=== PATIENT | female | born 1955 | race African-American/Black ===

== ENCOUNTER 2019-03-03 09:49 | Inpatient (IN) | payer BC, OTHER ==
[~2019-03-03] VITALS: Ht 160 cm; Wt 82.1 kg
[2019-03-03 09:49] VITALS: BP 128/71
[~2019-03-03 09:49] MED LIST: CALCIUM 500 +1 EAC4 PO; HYDROCHLOROTHIA25 M2 PO; NAPROSYN500 MG PO; NOHOMEMEDICATIONS; NORCO 5-325 TA1 EACH PO
[2019-03-03] MEDS ORDERED: ASPIR 8181 M1 PO (10:00)
[2019-03-03] MEDS ORDERED: OMEPRAZOLE 20 M20 M1 PO (10:00)
[2019-03-03] MEDS ORDERED: ARTHRITIS PAIN650 MG PO (10:02)
[2019-03-03 10:14] LABS: BASOPHILS 0.8 % (0.0-2.0); EOSINOPHILS 1.7 % (0.0-3.0); HEMATOCRIT 31.5 % (37.0-47.0); HEMOGLOBIN 10.5 gm/dL (12.0-15.0); LYMPHOCYTES 17.5 % (24.0-44.0); MCH 30.4 pg (26.0-34.0); MCHC 33.3 g/dL (28.0-37.0); MCV 91.2 fL (80.0-100.0); MONOCYTES 10.6 % (1.0-8.0); PLATELET COUNT 556 thou/uL (150-400); POLYS 69.4 % (36.0-66.0); RBC 3.46 mil/uL (4.20-5.00); WBC 8.6 thou/uL (4.0-11.0)
[2019-03-03 10:23] LABS: ANION GAP 11 mmol/L (7-16); BUN 14 mg/dL (7-18); CALCIUM 10.8 mg/dL (8.5-10.1); CHLORIDE 95 mmol/L (98-107); CO2 26 mmol/L (21-32); GLUCOSE 127 mg/dL (74-106); POTASSIUM 4.4 mmol/L (3.5-5.1); SODIUM 132 mmol/L (136-145)
[2019-03-03 10:30] LABS: BE(vivo) 2.8 mmol/L (-2 to +3); HCO3 26.2 mmol/L (22.0-26.0); PCO2 36.2 mmHg (35.0-45.0); PO2 98.5 mmHg (80.0-100.0); pH 7.478 (7.360-7.450); sO2 97.9 % (92.0-98.0)
[2019-03-03 10:32] LABS: TROPONIN-I <0.06 ng/mL (<0.06)
--- NOTE | 2019-03-03 11:32 | EKG ---
[address] [address] ELECTROCARDIOGRAM REPORT Name: VALENTINA PATEL Room #: 170-6 ADM IN M.R.#: [id number] Admission: 03/03/19 Attend Phys: Ross Burnett MD Discharge: Date of : 57 Report #: [id number] THIS REPORT FOR: //name// [facility] ED Test Date: 2019-03-03 Test Time: 09:52:40 Pat Name: VALENTINA WERNER Department: Room: 170 Gender: F Carpenter Refrigerator: SIGRID : 1955 Requested By: Forrest Lopez Order Number: [id number] MD: Ralph Oliveira Measurements Intervals [place] Rate: 134 P: 75 W[place]: 139 QRS: 4 QRSD: 85 T: -8 QT: 282 QTc: 421 Interpretive Statements Sinus tachycardia Left atrial enlargement Compared to ECG 04/21/2014 01:49:37 Electronically Signed On 03-03-2019 11:31:32 MEDICINAL CHEMIST by Ralph Oliveira [email or web address] <ELECTRONICALLY SIGNED> By: Ralph Oliveira MD 03/03/19 1131 Ralph Oliveira MD /FRANSISCO
[2019-03-03 11:50] VITALS: BP 121/78
[2019-03-03 12:01] VITALS: BP 142/74
[2019-03-03] MEDS ORDERED: AUGMENTIN400 MG/53 PO (12:06)
[2019-03-03 12:15] VITALS: BP 132/79
[2019-03-03 12:28] LABS: APTT 28.4 Seconds (24.5-32.8); INR 1.2; PROTIME 11.9 Seconds (9.3-11.4)
[2019-03-03 15:48] VITALS: BP 130/70
[2019-03-03 19:54] VITALS: BP 121/74
[2019-03-04 03:51] VITALS: BP 114/67
[2019-03-04 05:29] LABS: HEMATOCRIT 27.9 % (37.0-47.0); HEMOGLOBIN 9.1 gm/dL (12.0-15.0); MCH 30.4 pg (26.0-34.0); MCHC 32.6 g/dL (28.0-37.0); MCV 93.4 fL (80.0-100.0); RBC 2.99 mil/uL (4.20-5.00); RDW 15.1 % (10.5-14.5); WBC 9.4 thou/uL (4.0-11.0)
[2019-03-04 05:41] LABS: CALCIUM 9.7 mg/dL (8.5-10.1); CREATININE 0.9 mg/dL (0.6-1.0); MAGNESIUM 1.9 mg/dL (1.8-2.4); POTASSIUM 3.9 mmol/L (3.5-5.1); TOTAL BILIRUBIN 0.7 mg/dL (<0.1-1.0); TOTAL PROTEIN 8.2 g/dL (6.4-8.2)
[2019-03-04 07:25] VITALS: BP 106/79
[2019-03-04 11:20] VITALS: BP 127/75
--- NOTE | 2019-03-04 15:42 | 2DMMODE ---
[facility] [email or web address] [place] [address] 2 D/M-MODE ECHOCARDIOGRAM Name: VALENTINA PATEL Room #: 362-P ADM IN .R.#: [id number] Admission: 03/03/19 Attend Phys: Ross Burnett Discharge: Date of : 57 Report #: [id number] THIS REPORT FOR: //name// APPROVED REPORT Study performed: 03/04/2019 14:46:43 EXAM: Comprehensive 2D, Doppler, and color-flow Echocardiogram Patient Location: Bedside Room #: 362 Status: routine BSA: 1.93 HR: 98 bpm BP: 127/75 mmHg Other Information Study Quality: Adequate Technically limited study due to inability to position patient due to recent hip surgery, unable to lay flat. Indications Pulmonary Embolism 2D Dimensions RVDd: 30.15 mm IVSd: 11.17 (7-11mm) LVOT Diam: 20.57 (18-24mm) LVDd: 38.87 mm PWd: 9.99 (7-11mm) Ascending Ao: 30.54 (22-36mm) LVDs: 26.20 (25-40mm) Aortic Root: 31.22 mm IVC: 13.00 mm Volumes Left Atrial Volume (Systole) Single Plane 4CH: 26.12 mL Single Plane 2CH: 28.54 mL LA ESV Index: 16.00 mL/m2 Aortic Valve AoV Peak Vitor.: 1.36 m/s AO Peak Gr.: 7.44 mmHg LVOT Max P.05 mmHg LVOT Max V: 0.87 m/s OLGA Vmax: 2.13 cm2 Mitral Valve E/A Ratio: 0.6 MV Decel. Time: 208.99 ms [facility] [address] [place] [address] 2 D/M-MODE ECHOCARDIOGRAM Name: SOLO WERNERVALENTINAEJ TRUJILLO Room #: 362-P [facility] IN [facility].#: [id number] Admission: 03/03/19 Attend Phys: Ross Burnett Discharge: Date of : 57 Report #: [id number] E Max Vitor.: 0.70 m/s MV A Vitor.: 1.13 m/s MV PHT: 60.61 ms IVRT: 119.95 ms Pulmonary Valve PV Peak Vitor.: 0.88 m/s PV Peak Gr.: 3.07 mmHg Pulmonary Vein P Vein S: 0.37 m/s P Vein A: 0.33 m/s P Vein D: 0.46 m/s P Vein A Dur.: 121.1 msec P Vein S/D Ratio: 0.80 Tricuspid Valve RAP Estimate: 10.00 mmHg Left Ventricle The left ventricle is normal size. There is normal left ventricular wall thickness. The left ventricular systolic function is normal. The left ventricular ejection fraction is within the normal range. LVEF is 60-65%. Mild diastolic dysfunction is present (impaired relaxation pattern). Right Ventricle The right ventricle is normal size. The right ventricular systolic function is normal. Atria The left atrium size is normal. The right atrium size is normal. Aortic Valve The aortic valve is normal in structure. No aortic regurgitation is present. There is no aortic valvular stenosis. Mitral Valve The mitral valve is normal in structure. There is no mitral valve regurgitation noted. No evidence of mitral valve stenosis. Tricuspid Valve The tricuspid valve is normal in structure. There is no tricuspid valve regurgitation noted. Unable to assess PA pressure. Pulmonic Valve The pulmonary valve is normal in structure. Trace pulmonic regurgitation. [facility] [address] [address] 2 D/M-MODE ECHOCARDIOGRAM Name: VALENTINA PATEL Room #: 362-[facility] IN ..#: [id number] Admission: 03/03/19 Attend Phys: Ross Burnett Discharge: Date of : 57 Report #: [id number] Great Vessels The aortic root is normal in size. IVC is normal in size and collapses <50% with inspiration. Pericardium There is no pericardial effusion. <Conclusion> The left ventricle is normal size. There is normal left ventricular wall thickness. The left ventricular systolic function is normal. Mild diastolic dysfunction is present (impaired relaxation pattern). The right ventricle is normal size. The left atrium size is normal. The aortic valve is normal in structure. There is no mitral valve regurgitation noted. There is no tricuspid valve regurgitation noted. <ELECTRONICALLY SIGNED> By: Nam Berry MD 03/04/19 1541 [id number] Nam Berry MD /INF
[2019-03-04 18:25] VITALS: BP 122/84
[2019-03-04 19:22] VITALS: BP 128/72
[2019-03-05 03:53] VITALS: BP 127/55
[2019-03-05 05:08] LABS: HEMATOCRIT 27.8 % (37.0-47.0); HEMOGLOBIN 9.1 gm/dL (12.0-15.0); MCH 30.4 pg (26.0-34.0); MCHC 32.8 g/dL (28.0-37.0); MCV 92.7 fL (80.0-100.0); RBC 2.99 mil/uL (4.20-5.00); RDW 15.5 % (10.5-14.5); WBC 7.7 thou/uL (4.0-11.0)
[2019-03-05 05:11] LABS: CALCIUM 9.3 mg/dL (8.5-10.1); CREATININE 0.9 mg/dL (0.6-1.0); POTASSIUM 3.9 mmol/L (3.5-5.1)
[2019-03-05 07:40] VITALS: BP 128/66
[2019-03-05 11:15] VITALS: BP 117/64
[2019-03-05 15:30] VITALS: BP 98/60
[2019-03-05 19:34] VITALS: BP 124/64
[2019-03-06 04:45] VITALS: BP 131/66
[2019-03-06 05:42] LABS: MCH 30.2 pg (26.0-34.0); MCHC 33.2 g/dL (28.0-37.0); MCV 91.1 fL (80.0-100.0); RBC 2.97 mil/uL (4.20-5.00); RDW 15.6 % (10.5-14.5); WBC 7.5 thou/uL (4.0-11.0)
[2019-03-06 07:19] VITALS: BP 117/61
[2019-03-06 11:20] VITALS: BP 115/60
[2019-03-06 15:34] VITALS: BP 119/56
[2019-03-06 20:02] VITALS: BP 116/61
[2019-03-07 04:58] VITALS: BP 111/60
[2019-03-07 07:39] VITALS: BP 112/76
[2019-03-07 11:21] VITALS: BP 118/69
[2019-03-07 15:19] VITALS: BP 119/73
[2019-03-07 20:28] VITALS: BP 115/59
[2019-03-08 04:26] VITALS: BP 117/59
[2019-03-08 07:50] VITALS: BP 105/69
[2019-03-08 11:54] VITALS: BP 109/64
[2019-03-08 17:20] VITALS: BP 123/68
[2019-03-08 20:10] VITALS: BP 119/65
[2019-03-09 00:05] VITALS: BP 110/67
[2019-03-09 03:20] VITALS: BP 122/62
[2019-03-09 15:30] VITALS: BP 113/71
[2019-03-09 19:25] VITALS: BP 127/75
[2019-03-10 04:20] VITALS: BP 117/65
[2019-03-10 08:07] VITALS: BP 112/65
[2019-03-10 17:29] VITALS: BP 128/79
[2019-03-10 19:50] VITALS: BP 112/68
[2019-03-11 03:20] VITALS: BP 110/69
[2019-03-11 07:47] VITALS: BP 131/74
[2019-03-11 15:55] VITALS: BP 114/64
[2019-03-11 19:42] VITALS: BP 122/75
[2019-03-12 04:30] VITALS: BP 116/71
[2019-03-12 08:25] VITALS: BP 112/64
[2019-03-12] MEDS ORDERED: ELIQUIS5 MG PO (10:29)
[2019-03-12] MEDS ORDERED: AUGMENTIN 875-1 EACH PO (10:29)
[2019-03-12 12:14] VITALS: BP 112/64
[2019-03-12 15:40] VITALS: BP 112/64
== END 2019-03-12 17:00 | disposition home health service (06) | DRG 175 ==
LOC: ER 09:49 → 3W 10:48 → EROBS 10:48 → 3W 12:01 → 4S 03-08 23:37 → ENTRNSPT 03-12 16:37 → 4S 03-12 17:00
PROVIDERS: Emergency Medicine; Hospitalist; ADMIT Internal Medicine
DX: I26.99 Other pulmonary embolism without acute cor pulmonale (principal); J96.01 Acute respiratory failure with hypoxia; J18.9 Pneumonia, unspecified organism; J98.59 Other diseases of mediastinum, not elsewhere classified; J91.8 Pleural effusion in other conditions classified elsewhere; I82.431 Acute embolism and thrombosis of right popliteal vein; M19.90 Unspecified osteoarthritis, unspecified site; K21.9 Gastro-esophageal reflux disease without esophagitis; Z96.641 Presence of right artificial hip joint; Z87.891 Personal history of nicotine dependence; Z79.899 Other long term (current) drug therapy
CPT/HCPCS: 10102; 10779; 10879

== ENCOUNTER 2019-10-14 12:05 | Inpatient (IN) | payer BC, OTHER ==
[~2019-10-14] VITALS: Ht 160 cm; Wt 83.9 kg
--- NOTE | ~2019-10-14 | EKG ---
[facility] [place] [address] ELECTROCARDIOGRAM REPORT Name: VALENTINA PATEL Room #: 200-I ADM IN M.R.#: [id number] Admission: 10/14/19 Attend Phys: Alma Delia Espinoza Discharge: Date of : 57 Report #: [id number] THIS REPORT FOR: cc: FAM - Family physician unknown FAM - Family physician unknown Bhargav Durant MD ~ THIS REPORT FOR: //name// [facility] ED Test Date: 2019-10-14 Test Time: 14:34:29 Pat Name: VALENTINA WERNER Department: Room: 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
[~2019-10-14 12:05] MED LIST changes: +ARTHRITIS PAIN650 MG PO; +ASPIR 8181 M1 PO; +AUGMENTIN 875-1 EACH PO; +AUGMENTIN400 MG/53 PO; +ELIQUIS5 MG PO; +OMEPRAZOLE 20 M20 M1 PO
[2019-10-14 12:30] VITALS: BP 134/74
--- NOTE | 2019-10-14 13:36 | EKG ---
[facility] [place] [address] ELECTROCARDIOGRAM REPORT Name: VALENTINA PATEL [facility] [id number] Admission: 10/14/19 Attend Phys: Discharge: Date of : 57 Report #: [id number] THIS REPORT FOR: cc: FAM - Family physician unknown FAM - Family physician unknown Ralph Oliveira MD ~ THIS REPORT FOR: //name// [facility] ED Test Date: 2019-10-14 Test Time: 12:59:58 Pat Name: VALENTINA WERNER Department: Room: Gender: F Collections Representative: no : 1955 Requested By: Laz Jensen Order Number: [id number] : Ralph Oliveira Measurements Intervals [place] Rate: 69 P: 58 [place]: 181 QRS: 5 QRSD: 93 T: 92 QT: 385 QTc: 413 Interpretive Statements Sinus rhythm Probable left atrial enlargement Abnormal R-wave progression, early transition Probable left ventricular hypertrophy Inferior infarct, old Lateral leads are also involved Compared to ECG 03/03/2019 09:52:40 Myocardial infarct finding now present Sinus tachycardia no longer present Electronically Signed On 10-14-2019 13:35:58 CDT by Ralph Oliveira [email or web address] <ELECTRONICALLY SIGNED> By: Ralph Oliveira MD 10/14/19 1335 1259 1259 Ralph Oliveira MD /EPI
[2019-10-14 13:49] LABS: ABSOLUTE NEUTROPHILS 4.5 thou/uL (1.4-8.2); BASOPHILS 0.5 % (0.0-2.0); EOSINOPHILS 0.7 % (0.0-3.0); HEMATOCRIT 35.6 % (37.0-47.0); HEMOGLOBIN 12.1 gm/dL (12.0-15.0); LYMPHOCYTES 16.5 % (24.0-44.0); MCH 32.3 pg (26.0-34.0); MCV 94.9 fL (80.0-100.0); MONOCYTES 4.3 % (1.0-8.0); PLATELET COUNT 399 thou/uL (150-400); RBC 3.75 mil/uL (4.20-5.00); RDW 17.2 % (10.5-14.5); WBC 5.7 thou/uL (4.0-11.0)
[2019-10-14 13:52] LABS: CALCIUM 9.3 mg/dL (8.5-10.1); POTASSIUM 4.3 mmol/L (3.5-5.1)
[2019-10-14 14:02] LABS: TROPONIN-I 1.82 ng/mL (<0.06)
[2019-10-14 16:31] LABS: TROPONIN-I 4.46 ng/mL (<0.06)
[2019-10-14 17:07] LABS: CHOLESTEROL 147 mg/dL (<200); HDL CHOLESTEROL 51 mg/dL (>40); LDL CHOLESTEROL 85 mg/dL (<100); TC:HDL 2.9 Ratio (Not establshd); TRIGLYCERIDE 56 mg/dL (<150); VLDL 11 mg/dL (<40)
[2019-10-14 17:26] VITALS: BP 93/58
[2019-10-14 17:29] LABS: TSH 0.153 uIU/mL (0.358-3.740)
[2019-10-14 18:11] VITALS: BP 112/63
[2019-10-14 19:33] VITALS: BP 118/66
--- NOTE | 2019-10-14 19:47 | NUR ---
PT ADMITTED FROM ER ABOUT 1820PM, PT IS A&OX3, PT IS ON ROOM AIR , PT'S VS AND O2SAT ARE STABLE, PT HAS SMALL MEAL AT DINNER TIME, PT DOES NOT HAVE N/V AND SOB , PT HAS COVID TEST AT ER TODAY, RN HAS CALLED DR TO REPORT PT'S TROPONIN I 6.41, PT DENIES CHEST PAIN, NO NEW ORDER AT THIS TIME, RN HAS REPORT TO NEXT SHIFT TO KEEP EYE ON PT.
[2019-10-14] MEDS ORDERED: FOLIC ACID1 MG PO (20:26)
[2019-10-14] MEDS ORDERED: METHOTREXATE 22.5 M1 PO (20:27)
[2019-10-14] MEDS ORDERED: MULTI VITAMIN1 EACH PO (20:29)
[2019-10-15 05:37] VITALS: BP 134/70
--- NOTE | 2019-10-15 07:30 | NUR ---
Pt. didn't sleep much , still has intermittent chest discomfort which she described as ache. Tolerating room air well , no c/o shortness of breath. Up ad naresh in room with steady gait.
[2019-10-15 09:12] VITALS: BP 104/71
[2019-10-15 11:24] VITALS: BP 120/77
--- NOTE | 2019-10-15 11:32 | NUR ---
INITIAL ASSESSMENT: SW reviewed chart and spoke with nursing and attending physician. Pt was admitted from home due to NSTEMI. Pt placed in Enhanced Isolation due to COVID-19. Awaiting COVID test results. Pt will have cardiac cath when results are available. Pt will transfer to CCU once cleared to come out of isolation. YAMILKA placed call to pt's room. No answer. SW left voice message on pt's cell phone. Per chart, pt lives at home with roommate. 2 steps to enter the home. No steps inside. Pt has a walker at home. Pt [facility]. Pt's PCP is Dr. Janae Xiao at [facility]. SW is following to assist as needed with discharge planning.
--- NOTE | 2019-10-15 13:44 | NUR ---
PT CARE ASSUMED AT 0700, PT ALERT AND ORIENTED X4, PT DENIES ANY CHEST PAIN RIGO, BUT DID HAD SOME CHEST PRESSURE OVERNIGHT. PT DENIES NAUSEA AND VOMITTING. PT IS UP AD GEOVANNA TO THE BATHRROM, DENIES ANY PAIN. CALL LIGHT AND TABLE IN REACH. DENIES ANY NEEDS RIGO, PT PROGRESSING TOWARDS GOALS.
[2019-10-15 15:53] VITALS: BP 125/72
[2019-10-15 20:37] VITALS: BP 138/78
[2019-10-16] VITALS (19 sets, daily range): BP systolic 104–163; BP diastolic 51–94
--- NOTE | 2019-10-16 06:12 | NUR ---
ASSUMED CARE AT 1900. IN EVENING, PT REPORTED VERY MILD, INTERMITTENT CHEST PRESSURE THAT RESOLVED ON IT'S OWN, ALONG WITH A SORE THROAT. GAVE HOT TEA FOR THROAT, WHICH PT REPORTED HELPED A GREAT DEAL. SHE DID NOT REPORT ANY CHEST PAIN, PRESSURE, SOB, OR PALPITATIONS THE REST OF THE NIGHT; STATED SHE FELT BETTER THIS MORNING. SHE STATED SHE WANTS TO MAKE SURE DR. ROWAN TALKS WITH HER ABOUT THE PROCEDURE BEFORE SHE GOES. ALSO CONCERNED ABOUT BEING ABLE TO BE TRANSFERRED OFF THE COVID UNIT TODAY. PT WAS LARGELY IN SR WITH A 1ST DEG BLOCK OVERNIGHT, BUT HAD FREQ PERIODS LASTING 2-10 MINUTES OF SECOND DEGREE TYPE 1 BLOCK THROUGHOUT THE NIGHT; THIS MORNING HER HR ALSO DROPPED INTO THE MID-TO-HIGH 40'S BEFORE RECOVERING BACK TO 70'S. PT DENIED ANY SYMPTOMS. NO OTHER CONCERNS, WILL CONTINUE TO MONITOR.
--- NOTE | 2019-10-16 09:36 | 2DMMODE ---
[facility] [address] [place] [address] 2 D/M-MODE ECHOCARDIOGRAM Name: VALENTINA PATEL Room #: 364-P ADM IN M.R.#: [id number] Admission: 10/14/19 Attend Phys: Alma Delia Espinoza Discharge: Date of : 57 Report #: [id number] THIS REPORT FOR: cc: FAM - Family physician unknown FAM - Family physician unknown Seymour Yee MD ~ APPROVED REPORT Study performed: 10/16/2019 07:54:42 EXAM: Comprehensive 2D, Doppler, and color-flow Echocardiogram Patient Location: Bedside Room #: 364 Status: routine BSA: 1.89 HR: 44 bpm BP: 104/71 mmHg Rhythm: Epifanio/irregular Other Information Study Quality: Adequate Indications Elevated troponin. Hx: Pulmonary Embolism. 2D Dimensions RVDd: 39.20 mm IVSd: 12.27 (7-11mm) LVOT Diam: 20.56 (18-24mm) LVDd: 41.29 mm PWd: 12.00 (7-11mm) Ascending Ao: 32.77 (22-36mm) LVDs: 30.68 (25-40mm) Aortic Root: 33.39 mm Volumes Left Atrial Volume (Systole) Single Plane 4CH: 35.41 mL Single Plane 2CH: 45.80 mL LA ESV Index: 23.00 mL/m2 Aortic Valve AoV Peak Vitor.: 1.24 m/s AO Peak Gr.: 6.16 mmHg LVOT Max P.92 mmHg LVOT Max V: 0.85 m/s OLGA Vmax: 2.28 cm2 [facility] [address] [place] [address] 2 D/M-MODE ECHOCARDIOGRAM Name: VALENTINA PATEL Room #: 364-P [facility] IN [facility]#: [id number] Admission: 10/14/19 Attend Phys: Alma Delia Young Discharge: Date of : 57 Report #: [id number] Mitral Valve E/A Ratio: 0.9 MV Decel. Time: 196.03 ms MV E Max Vitor.: 0.98 m/s MV A Vitor.: 1.15 m/s MV PHT: 56.85 ms IVRT: 72.66 ms Pulmonary Valve PV Peak Vitor.: 0.65 m/s PV Peak Gr.: 1.71 mmHg Pulmonary Vein P Vein S: 0.45 m/s P Vein D: 0.31 m/s P Vein S/D Ratio: 1.45 Tricuspid Valve RAP Estimate: 15.00 mmHg Left Ventricle The left ventricle is normal size. There is normal LV segmental wall motion. Borderline concentric left ventricular hypertrophy. Left ventricular systolic function is normal. LVEF is 55%. Mild diastolic dysfunction is present (impaired relaxation pattern). Right Ventricle The right ventricle is normal size. The right ventricular systolic function is normal. Atria The left atrium size is normal. The right atrium size is normal. Aortic Valve The aortic valve is normal in structure. No aortic regurgitation is present. There is no aortic valvular stenosis. Mitral Valve The mitral valve is normal in structure. Mild mitral regurgitation. No evidence of mitral valve stenosis. Tricuspid Valve The tricuspid valve is normal in structure. Trace tricuspid regurgitation. Unable to assess PA pressure. [facility] [address] [place] [address] 2 D/M-MODE ECHOCARDIOGRAM Name: VALENTINA PATEL Room #: 364-P [facility] IN M.R.#: [id number] Admission: 10/14/19 Attend Phys: Alma Delia Young Discharge: Date of : 57 Report #: [id number] Pulmonic Valve The pulmonary valve is normal in structure. Trace pulmonic regurgitation. Great Vessels The aortic root is normal in size. The ascending aorta is normal in size. IVC is dilated and collapses <50% with inspiration. Pericardium There is no pericardial effusion. <Conclusion> The left ventricle is normal size. LVEF is 55%. The aortic valve is normal in structure. The mitral valve is normal in structure. Mild mitral regurgitation. The tricuspid valve is normal in structure. Trace tricuspid regurgitation. Unable to assess PA pressure. The pulmonary valve is normal in structure. Trace pulmonic regurgitation. There is no pericardial effusion. <ELECTRONICALLY SIGNED> By: Se[place] Y[place] [id number] 4 4 Seymour Yee MD /VARGAS
--- NOTE | 2019-10-16 13:33 | NUR ---
SW reviewed chart and spoke with nursing and attending physician. Pt's COVID test is negative. Pt to have cardiac cath today and transfer to CCU after procedure. SW will follow up with pt at a later time, and is available to assist as needed with discharge planning.
--- NOTE | 2019-10-16 16:39 | NUR ---
assumed care of pt at 0700. pt aox4 in no acute distress. denies any pain. up ad naresh. frustrated by lack of communication from doctors. second degree type 1 block on telemetry (joel). picked up by petroleum refinery laborer at approx 0900. transfered to ccu after. 2 attempts made to give report to receiving - waiting travel trailer components assembler back.
--- NOTE | 2019-10-16 20:29 | CATHLAB ---
[facility] [address] [place] [place] [address] INVASIVE PROCEDURE REPORT Name: VALENTINA PATELYL Room #: 200-I ADM IN M.R.#: [id number] Admission: 10/14/19 Attend Phys: Alma Delia Rhodes Hannahtawanda Discharge: Date of : 57 Report #: [id number] THIS REPORT FOR: cc: FAM - Family physician unknown FAM - Family physician unknown Salbador Barber MD [facility] ~ APPROVED REPORT Study performed: 10/16/2019 09:23:58 Patient Details The patient is a 64 year-old female Event Personnel Salbador Barber Patient Clerical Assistant, Cynthia Penn RN RN, Elvira España RT(R)() Monitor, Erlinda Osborn Scrub, Elisha Sparks RTR Scrub Procedures Performed Left Heart Cath w/or w/o Coronaries [id number] [facility] Art Access - R femoral artery* PE[address]A Place w/wo Plasty Single LAD 102206 Hemostasis w/ Mynx 78953 Initial Mod Sed Same Phys/QHP Gr5y 999142 27808 Mod Sed Same Phys/QHP Ea 126771 Abdominal Aortography 539715 Procedure Narrative The Right Groin^ was infiltrated with 1% Lidocaine subcutaneous anesthesia. A PINNACLE 6FR Sheath #[id number] sheath was inserted into the RFA 6F^. Coronary angiography was performed using coronary diagnostic catheters. The right coronary system was accessed and visualized with a JR4 catheter. The left coronary system was accessed and visualized with a JL4 catheter. The left ventricle was accessed and visualized with a PIGTAIL catheter. Closure device was deployed with a Fr 6F MYNX HOT AIR FURNACE INSTALLER REPAIRER. The patient tolerated the procedure well and there were no complications associated with the procedure. There was no hematoma. Intraoperative Conscious Sedation Fentanyl 50 mcg Versed --1 mg Fluoro Time: 11.30 minutes Dose: DAP 22449.40 cGycm2 Contrast Type and Amount: Omnipaque 250 ml Hemodynamics [facility] [employer] [place] [address] INVASIVE PROCEDURE REPORT Name: VALENTINA PATEL Room #: 200-I [facility] IN [facility]#: [id number] Admission: 10/14/19 Attend Phys: Alma Delia Young Discharge: Date of : 57 Report #: [id number] The aortic pressure is 121/57 mmHg with a mean of 82 mmHg. The left ventricular pressure is 124/7 mmHg with a mean of mmHg. The left ventricular end diastolic pressure is 24 mmHg. PCI Technique Lesion Percutaneous coronary intervention was performed on the mid left anterior descending artery segment. BALLOON DILATION A Balloon catheter Sprinter OTW 2.25 x 12 #[id number] was inserted and inflated up to 6.00atm for 18seconds. Additional Inflation: 6.00atm for 14seconds. STENT DEPLOYMENT A stent RESOLUTE ELENI OTW 2.25 X 12 #[id number] was inserted and inflated up to 10.00atm for 25seconds. Additional Inflation: 14.00atm for 24seconds. STENT DEPLOYMENT A stent RESOLUTE ELENI OTW 2.5 X 8 #[id number] was inserted and inflated up to 12.00atm for 30seconds. Additional Inflation: 14.00atm for 20seconds. Additional Inflation: 16.00atm for 20seconds. Additional Inflation: 16.00 néstor for 15 seconds Conclusion 1. Successful PTCA stent of the high-grade mid and mid distal LAD lesions placement of a 2.25 x 12 and 2.25 x 8 resolute [place] stents postdilated 2.4 mm LUCIA grade III flow #2 the proximal LAD is an eccentric lesion of 50% giving rise to the vessel as noted above. #3 left main mild disease giving rise to LAD and circumflex. Free of disease #4 circumflex OM with mild irregularities and is providing some collateral filling to an apparent PDA. No occlusive disease in the circumflex system #5 predominately small but anatomically dominant RCA has a mid distal total occlusion. It appears to be a chronic total occlusion and a small area of distribution and a collaterally filled via the left system PDA garcia. 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 Dual antiplatelet therapy will be initiated for LAD [address] [address] INVASIVE PROCEDURE REPORT Name: VALENTINA PATEL Room #: 200-I ADM IN M.R.#: [id number] Admission: 10/14/19 Attend Phys: Alma Delia Young Discharge: Date of : 57 Report #: [id number] stents. Patient transferred to [facility] to follow post coronary stent protocol. <ELECTRONICALLY SIGNED> By: Salbador Barber MD, FACC 10/16/192028 28 28 Salbador Barber MD, FACC /INF
[2019-10-17 00:52] VITALS: BP 137/71
[2019-10-17 03:20] VITALS: BP 127/69
--- NOTE | 2019-10-17 03:38 | NUR ---
Assessment as documented.Pt rested well through the noc in no acute distress.AOX4.VSS.Denies chest pain.C/O of anxiety at the beginning of the shift that she voiced is from the new diagnosis of cardiac issues,emotional support provided.Right groindressing cdi,no hematoma or active bleeding noted.bradycardiac on monitor.anticipating discharge to home today.no significant concerns /changed reported.
[2019-10-17 04:30] VITALS: BP 127/69
[2019-10-17 05:35] LABS: HEMOGLOBIN 10.7 gm/dL (12.0-15.0); MCH 31.5 pg (26.0-34.0); MCHC 32.6 g/dL (28.0-37.0); MCV 96.7 fL (80.0-100.0); RBC 3.41 mil/uL (4.20-5.00); RDW 17.2 % (10.5-14.5); WBC 6.3 thou/uL (4.0-11.0)
[2019-10-17 05:59] LABS: ALBUMIN 2.6 g/dL (3.4-5.0); CALCIUM 8.7 mg/dL (8.5-10.1); CREATININE 0.7 mg/dL (0.6-1.0); POTASSIUM 3.9 mmol/L (3.5-5.1); TOTAL BILIRUBIN 0.6 mg/dL (0.2-1.0); TOTAL PROTEIN 7.8 g/dL (6.4-8.2)
[2019-10-17 06:39] LABS: TROPONIN-I 7.35 ng/mL (<0.06)
[2019-10-17 07:30] VITALS: BP 135/72
[2019-10-17] MEDS ORDERED: LIPITOR40 MG PO (08:05)
[2019-10-17] MEDS ORDERED: EFFIENT10 MG PO (08:05)
--- NOTE | 2019-10-17 08:24 | NUR ---
DISCUSSED DISCHARGE PLANS TODAY. SHE IS VERY PLEASANT AND COOPERATIVE IN HER HEALTH CARE. ONLY WANTS TOAST AND TEA THIS AM FOR BREAKFAST, WILL REQUEST. DENIES ANY CHEST PAIN OR OVERALL DISCOMFORT.
--- NOTE | 2019-10-17 09:11 | EKG ---
[facility] [place] [address] ELECTROCARDIOGRAM REPORT Name: SOLO WERNERGUSVALENTINAEJ TRUJILLO Room #: 200-I ADM IN M.R.#: [id number] Admission: 10/14/19 Attend Phys: Alma Delia Espinoza Discharge: Date of : 57 Report #: [id number] THIS REPORT FOR: cc: FAM - Family physician unknown FAM - Family physician unknown Ralph Oliveira MD ~ THIS REPORT FOR: //name// [facility] Test Date: 2019-10-16 Test Time: 13:40:50 Pat Name: VALENTINA WERNER Department: Room: 200 I Gender: F Hair Spring Cutter: Shanda ESPINOZA : 1955 Requested By: Salbador Barber Order Number: [id number] MD: Ralph Oliveira Measurements Intervals [place] Rate: 43 P: 66 OR: 233 QRS: -1 QRSD: 89 T: -33 QT: 490 QTc: 415 Interpretive Statements 2:1 AV block Inferior infarct, age indeterminate Compared to ECG 10/14/2019 14:34:29 Left ventricular hypertrophy no longer present Myocardial infarct finding still present Electronically Signed On 10-17-2019 9:11:25 CDT by Ralph Oliveira [email or web address] <ELECTRONICALLY SIGNED> By: Ralph Oliveira MD 10/17/19 0911 1340 1340 Ralph Oliveira MD /EPI
--- NOTE | 2019-10-17 09:18 | EKG ---
[facility] [place] [address] ELECTROCARDIOGRAM REPORT Name: SOLO WERNERGUSVALENTINA RONNIE Room #: 200-I ADM IN M.R.#: [id number] Admission: 10/14/19 Attend Phys: Alma Delia Espinoza Discharge: Date of : 57 Report #: [id number] THIS REPORT FOR: cc: FAM - Family physician unknown FAM - Family physician unknown Ralph Oliveira MD ~ THIS REPORT FOR: //name// [facility] Test Date: 2019-10-17 Test Time: 07:33:21 Pat Name: VALENTINA WERNER Department: Room: 200 I Gender: F Disability Attorney: CECILLE : 1955 Requested By: Salbador Barber Order Number: [id number] MD: Ralph Oliveira Measurements Intervals [place] Rate: 42 P: 71 ND: 294 QRS: -11 QRSD: 91 T: -8 QT: 502 QTc: 420 Interpretive Statements Sinus bradycardia Prolonged ND interval Left ventricular hypertrophy Inferior infarct, age indeterminate Compared to ECG 10/16/2019 13:40:50 Left ventricular hypertrophy now present Myocardial infarct finding still present Electronically Signed On 10-17-2019 9:18:18 CDT by Ralph Oliveira [email or web address] <ELECTRONICALLY SIGNED> By: Ralph Oliveira MD 10/17/19917 2 2 Ralph Oliveira MD /EPI
--- NOTE | 2019-10-17 10:30 | NUR ---
PT. AMBULATING MORE IN ROOM NOW. SHE GOT SLIGHTLY SOB WITH ACTIVITY WITH CARDIAC REHABD NURSE BUT IT TOTALLY RESOLVED THE MINUTE SHE SAT DOWN. DENIES ANY CHEST PAIN AT THIS TIME OR THIS AM-"OVERALL". WANTS TO LEAVE TODAY PROMPLTY AT 12 HER RIDE IS ONLY AVAILABLE THEN FOR PICKUP.
[2019-10-17 12:18] VITALS: BP 142/69
== END 2019-10-17 12:37 | disposition home or self-care (01) | DRG 246 ==
LOC: ER 12:05 → 3W 16:37 → EROBS 16:37 → 3W 17:48 → 2N 10-16 12:34
PROVIDERS: Emergency Medicine; Internal Medicine Cardiovascular Disease; ADMIT Hospitalist; ATTEND Hospitalist
PROC: B2111ZZ Fluoroscopy of Multiple Coronary Arteries using Low Osmolar Contrast (ICD-10-PCS; principal; 2019-10-16)
PROC: 027035Z Dilation of Coronary Artery, One Artery with Two Drug-eluting Intraluminal Devices, Percutaneous Approach (ICD-10-PCS; principal; 2019-10-16)
PROC: 4A023N7 Measurement of Cardiac Sampling and Pressure, Left Heart, Percutaneous Approach (ICD-10-PCS; principal; 2019-10-16)
DX: I21.4 Non-ST elevation (NSTEMI) myocardial infarction (principal); J98.59 Other diseases of mediastinum, not elsewhere classified; I25.110 Atherosclerotic heart disease of native coronary artery with unstable angina pectoris; M06.9 Rheumatoid arthritis, unspecified; Z96.641 Presence of right artificial hip joint; Z20.828 Contact with and (suspected) exposure to other viral communicable diseases; Z87.891 Personal history of nicotine dependence; Z79.82 Long term (current) use of aspirin; Z79.899 Other long term (current) drug therapy; Z86.711 Personal history of pulmonary embolism
CPT/HCPCS: 10081; 10879

== ENCOUNTER → 2019-11-15 | Outpatient (CLI) | payer BC, OTHER ==
[~2019-11-15] MED LIST changes: +EFFIENT10 MG PO; +FOLIC ACID1 MG PO; +LIPITOR40 MG PO; +METHOTREXATE 22.5 M1 PO; +MULTI VITAMIN1 EACH PO
== END ==
LOC: LAB 07:58
PROVIDERS: ATTEND Internal Medicine Cardiovascular Disease
DX: Z01.812 Encounter for preprocedural laboratory examination (principal); Z20.828 Contact with and (suspected) exposure to other viral communicable diseases

== ENCOUNTER 2019-11-18 10:35 | Observation (INO) | payer BC, OTHER ==
[~2019-11-18] VITALS: Ht 160 cm; Wt 81.6 kg
[2019-11-18] VITALS (10 sets, daily range): BP systolic 132–147; BP diastolic 74–95
--- NOTE | ~2019-11-18 | P ---
[facility] [place] [address] PROCEDURE REPORT Name: SOLO WERNERVALENTINA NOYOLAYL [facility]: [facility] [id number] Admission: 11/18/19 Attend Phys: Ralph Oliveira MD Discharge: Date of : 57 Report #: [id number] THIS REPORT FOR: cc: CAMILA EDWARDS MD, CAMILA Oliveira,Ralph Day MD ~ CC: Ralph EDWARDS DATE OF SERVICE: 11/18/2019 PROCEDURE: Pacemaker implantation. PREOPERATIVE DIAGNOSIS: Complete heart block. POSTOPERATIVE DIAGNOSIS: Complete heart block. HISTORY: The patient is a 64-year-old female with history of coronary artery disease, status post prior stent with preserved ejection fraction, who has been having presyncopal symptoms and was noted to have periods of complete heart block on a recent school lunch monitor. She is here for dual chamber pacemaker implantation. ANESTHESIA: The patient underwent MAC anesthesia with no anesthesia related complications. DESCRIPTION OF PROCEDURE: The patient underwent informed consent. We discussed the details of the procedure including the risks, which include but not limited to bleeding, infection, vascular damage, cardiac perforation and pneumothorax. She understood these risks and is willing to proceed. The patient was brought to EP laboratory in a fasting and sedated state, prepped and draped in a sterile fashion. She underwent venogram showing patency of left axillary vein and received IV antibiotics prior to initiation of the procedure. Next, lidocaine was injected and incision was made under the left clavicle with a pocket created over the prepectoral fascia. Access was obtained twice to left axillary vein, sheath positioned using the modified Seldinger technique and leads were positioned in the right ventricular apex and right atrial appendage, both with adequate pacing and sensing thresholds. The leads were sutured to the prepectoral fascia. Device was connected. Tug test was performed. Pocket was irrigated with vancomycin. Pocket closed in 2 layers. The patient awoke neurologically and hemodynamically intact. No complications and no significant bleeding. The implanted pacemaker and leads were manufactured by [employer]. The device was a model #W3DR01, serial #[id number]. Atrial lead 5076, 52 cm, serial [facility] [address] [place] [address] PROCEDURE REPORT Name: VALENTINA PATEL Room #: REG [facility]#: [id number] Admission: 11/18/19 Attend Phys: Ralph Oliveira MD Discharge: Date of : 57 Report #: [id number] #[id number]. P-wave of 2.7 millivolts, pacing impedance 608 ohms, pacing threshold 1.5 volts at 0.4 milliseconds. The RV lead was a model #5076, serial #[id number] with an R-wave of 9.9 millivolts, pacing impedance 760 ohms, and pacing threshold 0.75 volts at 0.4 milliseconds. The device was programmed to the DDDR 60-130 mode. CONCLUSIONS: 1. Successful dual-chamber pacemaker implantation. 2. Satisfactory atrial and ventricular pacing and sensing thresholds. By: [id number] Ralph Oliveira MD /nt
[2019-11-18 12:03] LABS: ABSOLUTE NEUTROPHILS 3.1 thou/uL (1.4-8.2); BASOPHILS 1.1 % (0.0-2.0); EOSINOPHILS 7.3 % (0.0-3.0); HEMATOCRIT 37.7 % (37.0-47.0); HEMOGLOBIN 12.5 gm/dL (12.0-15.0); LYMPHOCYTES 27.4 % (24.0-44.0); MCH 31.6 pg (26.0-34.0); MCHC 33.1 g/dL (28.0-37.0); MCV 95.6 fL (80.0-100.0); MONOCYTES 8.3 % (1.0-8.0); PLATELET COUNT 383 thou/uL (150-400); POLYS 55.9 % (36.0-66.0); RBC 3.94 mil/uL (4.20-5.00); RDW 17.2 % (10.5-14.5); WBC 5.5 thou/uL (4.0-11.0)
[2019-11-18 12:10] LABS: CALCIUM 9.3 mg/dL (8.5-10.1); CREATININE 0.8 mg/dL (0.6-1.0); POTASSIUM 3.8 mmol/L (3.5-5.1)
[2019-11-18 12:16] LABS: ALBUMIN 4.2 g/dL (3.4-5.0); PROTIME 10.6 Seconds (9.3-11.4); TOTAL BILIRUBIN 0.3 mg/dL (0.2-1.0); TOTAL PROTEIN 9.6 g/dL (6.4-8.2)
[2019-11-19] VITALS: BP 121/74
[2019-11-19 05:00] VITALS: BP 130/80
[2019-11-19 07:16] VITALS: BP 127/82
--- NOTE | 2019-11-19 08:34 | NUR ---
ASSUME CARE 1900. PT/VITALS STABLE. DENIES ANY PAIN. UP AD GEOVANNA. PACEMAKER SITE CDI/SR ON MNITRO WITH NO PACED RHYTHM NOTED. NO DISTRESS NOTED THROUGH THE NIGHT. ASSESSMENT CARTED. PROGRESSING WELL WITH POC. PLAN IS POSSIBLE DISCHARGE TODAY. WILL CONTINUE TO MONITOR AND FOLLOW WITH POC
[2019-11-19 10:57] VITALS: BP 127/82
--- NOTE | 2019-11-19 12:07 | NUR ---
ASSUMED CARE AT SHIFT CHANGE, ALERT AND ORIENTED X4. VSS AND SR ON THE MONITOR. PATIENT LEFT AMA AND STATED THAT SHE WAS TIRED WAITING. I EXPLAINED TO THE PATIENT THAT SHE HAS TO JATINDER FOR C-XRAY RESULTS, AND SHE STATED THAT SHE IS FINE.
== END 2019-11-19 12:41 | disposition left against medical advice (07) ==
LOC: CATH 10:35 → 2N 15:44
PROVIDERS: ADMIT Internal Medicine Cardiovascular Disease; ATTEND Internal Medicine Cardiovascular Disease
DX: I44.2 Atrioventricular block, complete (principal); I25.10 Atherosclerotic heart disease of native coronary artery without angina pectoris; R00.1 Bradycardia, unspecified; E78.5 Hyperlipidemia, unspecified; Z86.711 Personal history of pulmonary embolism; Z79.899 Other long term (current) drug therapy
CPT/HCPCS: 62110; 62900; 70005

== ENCOUNTER → 2019-11-20 | Outpatient (CLI) | payer BC, OTHER | LOC: RAD 08:44 | PROVIDERS: ATTEND Internal Medicine Cardiovascular Disease | DX: J44.1 Chronic obstructive pulmonary disease with (acute) exacerbation (principal) ==

== ENCOUNTER → 2020-02-10 | Outpatient (CLI) | payer BC, OTHER | LOC: SJCVCIMAG 13:58 | PROVIDERS: ATTEND Internal Medicine Cardiovascular Disease | DX: M79.604 Pain in right leg (principal); M79.89 Other specified soft tissue disorders; Z86.718 Personal history of other venous thrombosis and embolism ==

== ENCOUNTER 2020-09-01 23:34 | Emergency (ER) | payer BC, OTHER ==
[~2020-09-01] VITALS: Ht 160 cm; Wt 88.5 kg
[2020-09-01] MEDS ORDERED: EFFIENT5 MG PO (23:40)
[2020-09-02 04:50] VITALS: BP 159/96
== END 2020-09-02 04:50 | disposition home or self-care (01) ==
LOC: ER 23:34
DX: M79.661 Pain in right lower leg (principal); M06.9 Rheumatoid arthritis, unspecified; I25.10 Atherosclerotic heart disease of native coronary artery without angina pectoris; I25.2 Old myocardial infarction; I73.9 Peripheral vascular disease, unspecified; E78.00 Pure hypercholesterolemia, unspecified; Z79.899 Other long term (current) drug therapy; Z87.891 Personal history of nicotine dependence

== ENCOUNTER → 2021-03-05 | Outpatient (CLI) | payer BC, OTHER ==
[~2021-03-05] MED LIST changes: +EFFIENT5 MG PO
== END ==
LOC: SJCVCIMAG 03-04 10:49
PROVIDERS: ATTEND Internal Medicine Cardiovascular Disease
DX: I25.10 Atherosclerotic heart disease of native coronary artery without angina pectoris (principal); Z95.1 Presence of aortocoronary bypass graft; Z95.0 Presence of cardiac pacemaker